=== PATIENT | male | born 1980 | race Caucasian/White ===

== ENCOUNTER 2023-07-01 09:45 | Emergency (ER) | payer MEDICAID ==
[~2023-07-01] VITALS: Ht 167.6 cm; Wt 81.6 kg
[2023-07-01 09:56] VITALS: BP 128/87; PULSE 74; RESP 14; TEMP 98.5; O2SAT 99
[2023-07-01] MEDS ORDERED: ACETAMINOPHEN EXTRA STRENGTH 500 MG TAB PO ONE (10:15)
[2023-07-01] MEDS ORDERED: KETOROLAC 30 MG/ML VIAL IM ONE (10:15)
[2023-07-01] MEDS ORDERED: methocarbamoL 500 MG TAB PO ONE (10:15)
[2023-07-01] MEDS ORDERED: LIDOCAINE 5% 1 EA PATCH TP ONE (10:35)
[2023-07-01 11:17] LABS: APPEARANCE,URINE CLEAR (CLEAR); BILIRUBIN,URINE NEGATIVE (NEGATIVE); BLOOD, URINE NEGATIVE (NEGATIVE); COLOR,URINE YELLOW (YELLOW); LEUKOCYTE ESTERASE ,URINE NEGATIVE (NEGATIVE); NITRITE, URINE NEGATIVE (NEGATIVE); PH,URINE 5.5 (5.0-9.0); PROTEIN,URINE NEGATIVE (NEGATIVE); UGLUCOSE NEGATIVE (NEGATIVE); UROBILINOGEN,URINE 0.2 EU/dL (0.2 - 1)
[2023-07-01] MEDS ORDERED: METH-1681 PO (11:57)
[2023-07-01] MEDS ORDERED: ACET-10509 PO (11:57)
[2023-07-01] MEDS ORDERED: IBUP-2213 PO (11:57)
[2023-07-01] MEDS ORDERED: LID5T TP (11:57)
[2023-07-01 12:19] VITALS: BP 121/82; PULSE 70; RESP 14; TEMP 98; O2SAT 99
[2023-07-02] MEDS ORDERED: LIDOCAINE 5% 1 EA PATCH TP SCH (09:00)
== END 2023-07-01 12:19 | disposition home or self-care (01) ==
LOC: MED 09:45
DX: M54.50 Low back pain, unspecified (principal); Z79.899 Other long term (current) drug therapy
CPT/HCPCS: 81003; 96372; 99284; J1885